=== PATIENT | female | born 1970 | race Caucasian/White ===

== ENCOUNTER → 2018-07-02 | Outpatient (CLI) | payer OTHER ==
--- NOTE | 2018-07-04 07:40 | RADIOLOGY REPORT ---
STRESS TEST REPORT [id number] RO[facility]#: DATE OF SERVICE: 07/02/2018 AGE: 47Y ORDER#: [id number] REFERRING MD: ANDRE HUNTER M.D. PROCEDURE PERFORMED REST/STRESS SINGLE ISOTOPE CARDIOLITE SPECT IMAGING WITH EXERCISE STRESS AND GATED SPECT IMAGING INDICATION Chest pain. CLINICAL HISTORY This 47 years old female with 2 coronary artery risk factors, currently complaining of chest pains. PROCEDURE The patient performed treadmill exercise testing using the standard [facility] protocol completing 6 minutes with an estimated workload of 7 METS. The resting heart rate was 91 bpm and increased to 150 bpm, this is 86% of the maximum predicted heart rate. The blood pressure response to exercise was normal, resting blood pressure was 136/91 increasing to 181/70 at peak exercise. The patient did not develop any symptoms of chest pains, but did have significant dyspnea prohibiting further increase to the next stage 3. Resting EKG showed NSR, 89, nonspecific inferior ST changes were seen. At peak exercise further ST depression was seen in the inferior and V5, V6 precordial leads. Myocardial perfusion imaging was performed at rest 60 minutes following injection of 10.74 mCi Cardiolite. At peak exercise, the patient was injected with 31.8 mCi Cardiolite. Gated post stress tomographic imaging was performed 60 minutes after stress. FINDINGS The overall quality of the study is good. The left ventricular cavity is noted to be normal in size on both the rest and stress studies. There is no evidence of normal transient ischemic irritation left ventricle. The TID ratio was normal at 0.97. SPECT images showed a small area of mild reversible ischemia in the basal anteroseptal wall and basal anterior wall. There is no fixed perfusion defect. Gated SPECT imaging showed reduced motion contraction in the basal septum. The left ventricular ejection fraction was calculated at 63% and normal. IMPRESSION Myocardial perfusion imaging is abnormal. There is a small area of mild reversible ischemia in the basal anteroseptal wall and basal anterior wall with no fixed perfusion defect. The basal septum showed reduced motion contraction and motion. The left ventricular ejection fraction was 63%. No prior study for comparison. This is a low risk scan, begin optimal medical management. INTERPRETING PHYSICIAN: ANDRE HUNTER M.D. /: [id number] TT: 1610 ID: [id number] /: [id number] TD: 0904 JOB: [id number] cc:ANDRE HUNTER M.D. > MANDO
== END ==
LOC: RAD 06:34
PROVIDERS: ATTEND Internal Medicine Cardiovascular Disease
DX: R07.9 Chest pain, unspecified (principal)
CPT/HCPCS: 93017; 78452; A9500; Q9969

== ENCOUNTER → 2019-04-18 | Outpatient (CLI) | payer OTHER ==
[2019-04-18 12:45] LABS: APPEARANCE,URINE CLOUDY; BILIRUBIN,URINE NEGATIVE (NEGATIVE); COLOR,URINE YELLOW; GLUCOSE, URINE NEGATIVE (NEGATIVE); KETONES,URINE NEGATIVE (NEGATIVE); LEUKOCYTE ESTERASE,URINE LARGE (NEGATIVE); NITRITE,URINE NEGATIVE (NEGATIVE); PROTEIN,URINE 100 mg/dL (NEGATIVE); URINE SPECIFIC GRAVITY 1.016
== END ==
LOC: OD 11:08
PROVIDERS: ATTEND Internal Medicine Cardiovascular Disease
DX: R30.0 Dysuria (principal)
CPT/HCPCS: 81001; 87086; 87088; 87186